=== PATIENT | female | born 1985 | race Caucasian/White ===

== ENCOUNTER 2017-01-19 01:46 | Emergency (ER) | payer MEDICAID, OTHER ==
[~2017-01-19] VITALS: Ht 160 cm; Wt 70.1 kg
[~2017-01-19 01:46] MED LIST: SERT25TA3 PO
[2017-01-19] MEDS ORDERED: FAMOTIDINE 20 MG TABLET ONE (02:42)
[2017-01-19] MEDS ORDERED: ONDANSETRON ODT 4 MG ONE (02:42)
[2017-01-19] MEDS ORDERED: FAMOTIDINE 20 MG TABLET PO ONE (03:00)
[2017-01-19] MEDS ORDERED: ONDANSETRON ODT 4 MG PO ONE (03:00)
[2017-01-19 05:13] VITALS: BP 98/70
== END 2017-01-19 05:15 | disposition home or self-care (01) ==
LOC: ED 05:12
DX: F10.120 Alcohol abuse with intoxication, uncomplicated (principal)
CPT/HCPCS: 99283; Q0162